=== PATIENT | male | born 1995 | race Caucasian/White ===

== ENCOUNTER 2023-11-29 14:43 | Observation (INO) ==
[2023-11-29 15:37] LABS: Hematocrit (blood only) 46.4 % (42.0-52.0); Hemoglobin 15.9 g/dl (14.0-18.0); Mean Corpuscular Hemoglobin 29.3 pg (25.0-34.0); Mean Corpuscular Hgb Conc 34.3 g/dL (32.0-36.0); Mean Corpuscular Volume 85.6 fL (80.0-100.0); Mean Platelet Volume 10.1 fL (9.4-12.4); Platelet Count 414 K/uL (130-400); RDW Coefficient of Variation 12.6 % (11.5-14.5); RDW Standard Deviation 39.3 fL (36.4-46.3); Red Blood Count 5.42 M/uL (4.70-6.10); White Blood Count 16.64 K/ul (4.8-10.8)
[2023-11-29 15:55] LABS: Albumin Globulin Ratio 1.5 (0.9-2); BUN Creatinine Ratio 12.9 (10-20); Bilirubin,Total 0.4 mg/dl (0.2-1.0); Calcium 10.1 mg/dl (8.6-10.3); Creatinine Clr Calc Pharmacy 133.8 ml/min; Est GFR (African American) 128.1 ml/min; Est GFR (Non-African American) 110.5 ml/min; Globulin 3.4 gm/dl (2.5-4.0); Potassium 4.2 mmol/L (3.5-5.1); Total Protein 8.4 gm/dl (6.0-8.3)
--- NOTE | 2023-11-29 16:09 | Emergency Department Note ---
History of Present Illness General Chief complaint: Abdominal Pain Stated complaint: ABD PAIN, VOMITING Time Seen by Provider: 11/29/23 15:50 Source: patient, family (Significant other who is at the bedside), RN notes reviewed and old records reviewed (Attempted but no old records are available in the EMR) Mode of arrival: ambulatory Limitations: no limitations History of Present Illness Maximum Pain Intensity: 8 This patient is a 28-year-old male who comes in after having epigastric pain since 4:00 in the morning. She thought it was GERD initially but is gotten worse it does radiate to his back at times he had nausea and vomiting x 4 no blood or coffee-ground emesis worse if he eats . no injury. no chest pain or shortness of breath. no fever or chills. no urinary symptoms. slight sore throat from vomiting. He does use marijuana occasionally last 1 or 2 days ago. He says he does not use it heavily. Past Med/Surg History Social History Smoking Status: Former smoker Feels Safe at Home: Yes Review of Systems A total of 10 systems reviewed and were otherwise negative Physical Exam Vital Signs Vital Signs - 24 hr 11/29/23 14:46 11/29/23 16:23 11/29/23 16:42 Temperature 36.8 C Temperature Source Temporal Artery Scan Pulse Rate 74 Pulse Rate [Finger] 69 Pulse Rhythm [Finger] Regular Respiratory Rate 18 18 Respiratory Effort / Characteristics Non-Labored Spontaneous Non-Labored Spontaneous Respiratory Depth Normal Normal Respiratory Pattern Regular Regular Blood Pressure 173/108 H Blood Pressure [Left Arm] 154/97 H Blood Pressure Mean 129 Blood Pressure Mean [Left Arm] 116 Blood Pressure Position Sitting Blood Pressure Position [Left Arm] Sitting Pulse Oximetry 98 97 98 Oxygen Delivery Method Room Air Room Air Room Air Sepsis Recent Fever Within 48 Hours No Sepsis New/Unexplained Change in Mental Status No Sepsis Action Taken by Nursing No Action Required 11/29/23 18:17 Temperature Temperature Source Pulse Rate Pulse Rate [Finger] 77 Pulse Rhythm [Finger] Respiratory Rate 18 Respiratory Effort / Characteristics Respiratory Depth Respiratory Pattern Blood Pressure Blood Pressure [Left Arm] 130/94 Blood Pressure Mean Blood Pressure Mean [Left Arm] 106 Blood Pressure Position Blood Pressure Position [Left Arm] Pulse Oximetry 99 Oxygen Delivery Method Room Air Sepsis Recent Fever Within 48 Hours Sepsis New/Unexplained Change in Mental Status Sepsis Action Taken by Nursing General: Well developed well nourished young male who appears in no acute distress, breathing comfortably on room air. Normal speech HEENT: Normal cephalic atraumatic. Pupils are equal round and reactive to light. Extraocular movements are intact. Oropharynx is pink with moist mucous membranes. No swelling of the mouth lips or tongue. Neck: Supple with a midline trachea. No meningeal signs or stiffness, no JVD or bruits. No Stridor. Chest: Clear to auscultation bilaterally. No wheezes or rhonchi. No increased work of breathing. Heart: Regular rate and rhythm without murmurs or gallops. Abdomen: Soft, minimally tender in the epigastric area nondistended without rebound guarding or rigidity. Extremities: No cyanosis clubbing or edema. No calf tenderness or assymetry Spine/Back. Non tender to palpation. No CVA tenderness Skin: Good turgor without rashes. Neurologic exam: Cranial nerves two through 12 are intact. Motor and sensation are intact and symmetrical throughout. Course Administered Medications Sodium Chloride (Nss) 1,000 mls @ 999 mls/hr IV .Q1H1M ONE Stop: 11/29/23 18:53 Last Admin: 11/29/23 17:56 Dose: 999 mls/hr Documented By: SANTOSH Discontinued Medications Sodium Chloride (Nss) 1,000 mls @ 999 mls/hr IV .Q1H1M ONE Stop: 11/29/23 17:00 Last Infusion: 11/29/23 17:25 Dose: Infused Documented By: Admin: 11/29/23 16:22 Dose: 999 mls/hr Documented By: ROMERO Ioversol (Optiray 320 100ml) 93 ml IV ONCE ONE Stop: 11/29/23 16:15 Last Admin: 11/29/23 16:14 Dose: 93 ml Documented By: GARCÍA Ondansetron HCl (Ondansetron Inj 2 Mg/Ml 2 Ml Vial) 4 mg IV NOW STA Stop: 11/29/23 16:01 Last Admin: 11/29/23 16:22 Dose: 4 mg Documented By: ROMERO Medical Decision Making Differential Diagnosis Gastritis, gallbladder disease, pancreatitis, appendicitis, electrolyte or metabolic abnormality, colitis, toxicologic Laboratory Data 11/29/23 15:24 11/29/23 15:24 Lab Results 11/29/23 11/29/23 Range/Units 15:24 16:23 WBC 16.64 H (4.8-10.8) K/ul RBC 5.42 (4.70-6.10) M/uL Hgb 15.9 (14.0-18.0) g/dl Hct 46.4 (42.0-52.0) % MCV 85.6 (80.0-100.0) fL MCH 29.3 (25.0-34.0) pg MCHC 34.3 (32.0-36.0) g/dL RDW Std Deviation 39.3 (36.4-46.3) fL RDW Coeff of Nimesh 12.6 (11.5-14.5) % Plt Count 414 H (130-400) K/uL MPV 10.1 (9.4-12.4) fL Immature Gran % (Auto) 0.4 % Neut % (Auto) 92.5 % Lymph % (Auto) 4.0 % [place] % (Auto) 2.8 % Eos % (Auto) 0.0 % Baso % (Auto) 0.3 % Neut # (Auto) 15.41 H (1.40-6.50) K/uL Lymph # (Auto) 0.66 L (1.20-3.40) K/uL [place] # (Auto) 0.46 (0.11-0.59) K/uL Eos # (Auto) 0.00 (0.00-0.50) K/uL Baso # (Auto) 0.05 (0.00-0.20) K/uL Immature Gran # (Auto) 0.06 (0.01-0.20) K/uL Sodium 136 (136-145) mmol/L Potassium 4.2 (3.5-5.1) mmol/L Chloride 101 (98-107) mmol/L Carbon Dioxide 26 (21-32) mmol/L Anion Gap 9 (3-11) BUN 12 (6-23) mg/dl Creatinine 0.93 (0.6-1.4) mg/dl Est Cr Clr Drug Dosing 133.8 ml/min Est GFR ( Amer) 128.1 ml/min Est GFR (Non-Af Amer) 110.5 ml/min BUN/Creatinine Ratio 12.9 (10-20) Glucose 134 H (70-99(Fasting)) mg/dl Calcium 10.1 (8.6-10.3) mg/dl Total Bilirubin 0.4 (0.2-1.0) mg/dl AST 23 (13-39) U/L ALT 30 (7-52) U/L Alkaline Phosphatase 51 (34-104) U/L Total Protein 8.4 H (6.0-8.3) gm/dl Albumin 5.0 (3.4-5.0) gm/dl Globulin 3.4 (2.5-4.0) gm/dl Albumin/Globulin Ratio 1.5 (0.9-2) Lipase 9 L (11-82) U/L Urine Color Yellow Urine Appearance Clear (Clear) Urine pH 7.0 (4.5-7.5) Ur Specific [place] > 1.045 H (1.000-1.030) Urine Protein 1+ H (Negative) Urine Glucose (UA) Negative (Negative) Urine Ketones 2+ H (Negative) Urine Blood Negative (Negative) Urine Nitrite Negative (Negative) Urine Bilirubin Negative (Negative) Urine Urobilinogen Negative (Negative) Ur Leukocyte Esterase Negative (Negative) Urine WBC (Auto) 0-5 (0-5) /hpf Urine RBC (Auto) 0-2 (0-2) /hpf U Hyaline Cast (Auto) 0-2 (0-2) /lpf U Epithel Cells (Auto) 0-2 (0-2) /hpf Urine Bacteria (Auto) None Seen (None Seen) Imaging Data Attestation: I personally reviewed and interpreted this imaging study as follows: My Impression: CAT scan of the abdomen and pelvis-gallbladder appears to be thickened and enlarged with a large stone seen in Radiologist's Impression: Abdomen/Pelvis CT 11/29/23 16:[address] WITH IV CONTRAST CT DOSE: 1384.01 mGy.cm HISTORY: Acute epigastric abdominal pain epigastric abd pain TECHNIQUE: Multiaxial CT images of the abdomen and pelvis were performed following the IV administration of 93 cc of Optiray, A dose lowering technique was utilized adhering to the principles of ALARA. COMPARISON STUDY: None. FINDINGS: Clear lung bases. No free air. Unremarkable spleen, pancreas and adrenal glands. 2.4 cm stone within the gallbladder neck. Mild gallbladder wall thickening with trace pericholecystic stranding. Hepatic steatosis. Patency of the hepatic and portal veins. Normal appearance of the kidneys. Partially decompressed urinary bladder. Aorta and IVC are unremarkable. No lymphadenopathy. No bowel junction, bowel wall thickening or mesenteric inflammatory stranding. Hyperdense material noted within the distal appendix may represent retained enteric contrast versus appendicolith. No CT evidence of acute appendicitis. Mild intervertebral disc space narrowing with circumferential disc osteophyte complex at L5-S1. No acute fracture. IMPRESSION: 1. Cholelithiasis with findings suggestive of acute cholecystitis. 2. Noninflamed appendix. ACT 112: Negative or not required by law. The above report was generated using voice recognition software. It may contain grammatical, syntax or spelling errors. Electronically signed by: Feliberto Valdes M.D. 11/29/2023 4:40 PM MDM Narrative This patient comes in as described above. He was seen in triage to help expedite his care. He has epigastric abdominal pain. IV access was tablet his blood count shows an elevated white count of 16 he has no peritonitis he has no significant tenderness in the right upper quadrant. He has normal liver functions and lipase. He has no significant electrolyte or metabolic abnormalities. IV access was established and he was hydrated with a 1 L IV normal saline bolus. He has remained stable was kept n.p.o. he was given a second 1 L normal saline bolus IV. His CAT scan shows a normal appendix however he has a large gallstone and findings consistent with acute cholecystitis. I did discuss the case and consult Dr. Nunez to see the patient in the emergency department for further treatment evaluation of his acute cholecystitis. Dr. Nunez plans on admitting the patient and doing the gallbladder tomorrow after discussing the case with him I did order Zosyn 4.5 g IV for antibiotic coverage. The patient reports to me no allergies. He was also having a little more pain so I did order morphine 2 mg IV and Zofran 4 mg IV. The patient will be admitted/observed Impression & Plan Acute cholecystitis, Abdominal pain, Nausea, Vomiting, Acute dehydration Discharge Plan Visit Data Chief Complaint: Abdominal Pain Stated Complaint: ABD PAIN, VOMITING ED Provider: Sean Sena Discharge Problem: Acute cholecystitis, Abdominal pain, Nausea, Vomiting, Acute dehydration Forms Stand Alone Forms: [facility] Referrals Referrals: PCP,NO [Primary Care Provider] - Discharge Problem: Abdominal pain Qualifiers: Abdominal location: epigastric Qualified Code(s): R10.13 - Epigastric pain Vomiting Qualifiers: Vomiting type: unspecified Nausea presence: with nausea Qualified Code(s): R 11.2 - Nausea with vomiting, unspecified
[2023-11-29] MEDS: OPTIRAY 320 100ml IV ONE (16:14)
[2023-11-29 16:18] LABS: Basophils # (auto) 0.05 K/uL (0.00-0.20); Basophils % (auto) 0.3 %; Immature Granulocytes # (auto) 0.06 K/uL (0.01-0.20); Immature Granulocytes % (auto) 0.4 %; Lymphocytes # (auto) 0.66 K/uL (1.20-3.40); Monocytes # (auto) 0.46 K/uL (0.11-0.59); Monocytes % (auto) 2.8 %; Neutrophils # (auto) 15.41 K/uL (1.40-6.50); Neutrophils % (auto) 92.5 %
[2023-11-29] MEDS: ONDANSETRON INJ 2 MG/ML 2 ML VIAL IV STA ×2 (16:22→18:37)
[2023-11-29] MEDS: SODIUM CHLORIDE 0.9% 1,000 ML IV ONE ×2 (16:22→17:56)
--- NOTE | 2023-11-29 16:41 | CT Scan Report ---
ABDOMEN AND PELVIS CT WITH IV CONTRAST CT DOSE: 1384.01 mGy.cm HISTORY: Acute epigastric abdominal pain epigastric abd pain TECHNIQUE: Multiaxial CT images of the abdomen and pelvis were performed following the IV administrat ion of 93 cc of Optiray, A dose lowering technique was utilized adhering to the principles of ALARA. COMPARISON STUDY: None. FINDINGS: Clear lung bases. No free air. Unremarkable spleen, pancreas and adrenal glands. 2.4 cm sto ne within the gallbladder neck. Mild gallbladder wall thickening with trace pericholecystic stranding . Hepatic steatosis. Patency of the hepatic and portal veins. Normal appearance of the kidneys. Parti ally decompressed urinary bladder. Aorta and IVC are unremarkable. No lymphadenopathy. No bowel junction, bowel wall thickening or mesenteric inflammatory stranding. Hyperdense material no jamari within the distal appendix may represent retained enteric contrast versus appendicolith. No CT ev idence of acute appendicitis. Mild intervertebral disc space narrowing with circumferential disc oste ophyte complex at L5-S1. No acute fracture. IMPRESSION: 1. Cholelithiasis with findings suggestive of acute cholecystitis. 2. Noninflamed appendix. ACT 112: Negative or not required by law. The above report was generated using voice recognition software. It may contain grammatical, syntax o r spelling errors. Electronically signed by: Feliberto Valdes M.D. 11/29/2023 4:40 PM
[2023-11-29 16:43] LABS: Appearance Urine Clear (Clear); Bacteria Urine Automated None Seen (None Seen); Bilirubin Urine Negative (Negative); Blood Urine Negative (Negative); Cast Urine Automated 0-2 /lpf (0-2); Color Urine Yellow; Epithelial Cell Urine Auto 0-2 /hpf (0-2); Glucose Urine UA Negative (Negative); Ketones Urine 2+ (Negative); Leukocyte Esterase Urine Negative (Negative); Nitrite Urine Negative (Negative); Protein Urine 1+ (Negative); RBC Urine Automated 0-2 /hpf (0-2); Specific Gravity Urine > 1.045 (1.000-1.030); Urobilinogen Urine Negative (Negative); WBC Urine Automated 0-5 /hpf (0-5)
[2023-11-29] MEDS: MoRPHine SULFATE 2 MG/ML CARP IV STA (18:37)
[2023-11-29] MEDS: PIPERACILLIN/TAZOBACTAM 4.5 GM/100 ML BAG IV ONE (18:37)
--- NOTE | 2023-11-29 18:39 | History & Physical Report ---
Date of Service November 29, 2023 Assessment & Plan (1) Acute cholecystitis: Plan 28-year-old gentleman with acute cholecystitis. Had a long discussion with him concerning the findings on CT. We discussed the risks and benefits of a laparoscopic cholecystectomy. We will admit him to the hospital and placed him on IV antibiotics and IV fluids. He will be n.p.o. past midnight. We will take him to the operating room in the morning for laparoscopic cholecystectomy. All his questions were answered, he is agreeable with the plan. History of Present Illness Primary Care Provider: NO PCP 28-year-old gentleman presents with right upper quadrant and epigastric abdominal pain beginning at 4 AM this morning. It woke him up from sleep. This been accompanied by nausea and vomiting. He gives a history of similar episodes of less intensity lasting a few hours over the past few years. He denies fevers and chills with this episode. He states the pain is a dull ache across his right upper quadrant and epigastrium. He had a bowel movement earlier today. He is able to keep down clears but no solid foods. White blood cell count is 16. CT demonstrates acute cholecystitis with a large gallstone. Past Med/Surg History Social History Smoking Status: Former smoker Feels Safe at Home: Yes Review of Systems Review of Systems: All systems reviewed & are unremarkable except as noted in HPI & below Physical Exam Constitutional: WD/WN, vitals as above Eyes: PERRL, conjunctivae normal, anicteric sclerae Neck: trachea midline, no thyromegaly Respiratory: normal respiratory effort; no respiratory distress and no labored breathing Cardiovascular: Rate/Rhythm: regular rate and regular rhythm Gastrointestinal (Abdomen): Inspection/Auscultation: abdomen normal to inspection; abdomen not distended Percussion/Palpation: + abdomen tender ( RUQ and epigastrium) and abdomen soft; no guarding and abdomen not rigid Skin: no rashes, warm and dry Psychiatric: A+Ox3, euthymic affect Results & Data Results & Data Vital Signs (Past 12 Hours) Vital Signs Temp Pulse Pulse Resp BP BP Pulse Ox 11/29/23 18:17 77 18 130/94 99 11/29/23 16:42 98 11/29/23 16:23 69 18 154/97 H 97 11/29/23 14:46 36.8 C 74 18 173/108 H 98 O2 Del Method 11/29/23 18:17 Room Air 11/29/23 16:42 Room Air 11/29/23 16:23 Room Air 11/29/23 14:46 Room Air Laboratory Results 11/29/23 11/29/23 Range/Units 16:23 15:24 WBC 16.64 H (4.8-10.8) K/ul RBC 5.42 (4.70-6.10) M/uL Hgb 15.9 (14.0-18.0) g/dl Hct 46.4 (42.0-52.0) % MCV 85.6 (80.0-100.0) fL MCH 29.3 (25.0-34.0) pg MCHC 34.3 (32.0-36.0) g/dL RDW Std Deviation 39.3 (36.4-46.3) fL RDW Coeff of Nimesh 12.6 (11.5-14.5) % Plt Count 414 H (130-400) K/uL MPV 10.1 (9.4-12.4) fL Immature Gran % (Auto) 0.4 % Neut % (Auto) 92.5 % Lymph % (Auto) 4.0 % [place] % (Auto) 2.8 % Eos % (Auto) 0.0 % Baso % (Auto) 0.3 % Neut # (Auto) 15.41 H (1.40-6.50) K/uL Lymph # (Auto) 0.66 L (1.20-3.40) K/uL [place] # (Auto) 0.46 (0.11-0.59) K/uL Eos # (Auto) 0.00 (0.00-0.50) K/uL Baso # (Auto) 0.05 (0.00-0.20) K/uL Immature Gran # (Auto) 0.06 (0.01-0.20) K/uL Sodium 136 (136-145) mmol/L Potassium 4.2 (3.5-5.1) mmol/L Chloride 101 (98-107) mmol/L Carbon Dioxide 26 (21-32) mmol/L Anion Gap 9 (3-11) BUN 12 (6-23) mg/dl Creatinine 0.93 (0.6-1.4) mg/dl Est Cr Clr Drug Dosing 133.8 ml/min Est GFR ( Amer) 128.1 ml/min Est GFR (Non-Af Amer) 110.5 ml/min BUN/Creatinine Ratio 12.9 (10-20) Glucose 134 H (70-99(Fasting)) mg/dl Calcium 10.1 (8.6-10.3) mg/dl Total Bilirubin 0.4 (0.2-1.0) mg/dl AST 23 (13-39) U/L ALT 30 (7-52) U/L Alkaline Phosphatase 51 (34-104) U/L Total Protein 8.4 H (6.0-8.3) gm/dl Albumin 5.0 (3.4-5.0) gm/dl Globulin 3.4 (2.5-4.0) gm/dl Albumin/Globulin Ratio 1.5 (0.9-2) Lipase 9 L (11-82) U/L Urine Color Yellow Urine Appearance Clear (Clear) Urine pH 7.0 (4.5-7.5) Ur Specific [place] > 1.045 H (1.000-1.030) Urine Protein 1+ H (Negative) Urine Glucose (UA) Negative (Negative) Urine Ketones 2+ H (Negative) Urine Blood Negative (Negative) Urine Nitrite Negative (Negative) Urine Bilirubin Negative (Negative) Urine Urobilinogen Negative (Negative) Ur Leukocyte Esterase Negative (Negative) Urine WBC (Auto) 0-5 (0-5) /hpf Urine RBC (Auto) 0-2 (0-2) /hpf U Hyaline Cast (Auto) 0-2 (0-2) /lpf U Epithel Cells (Auto) 0-2 (0-2) /hpf Urine Bacteria (Auto) None Seen (None Seen) Diagnostic Findings ABDOMEN AND PELVIS CT WITH IV CONTRAST CT DOSE: 1384.01 mGy.cm HISTORY: Acute epigastric abdominal pain epigastric abd pain TECHNIQUE: Multiaxial CT images of the abdomen and pelvis were performed following the IV administration of 93 cc of Optiray, A dose lowering technique was utilized adhering to the principles of ALARA. COMPARISON STUDY: None. FINDINGS: Clear lung bases. No free air. Unremarkable spleen, pancreas and adrenal glands. 2.4 cm stone within the gallbladder neck. Mild gallbladder wall thickening with trace pericholecystic stranding. Hepatic steatosis. Patency of the hepatic and portal veins. Normal appearance of the kidneys. Partially decompressed urinary bladder. Aorta and IVC are unremarkable. No lymphadenopathy. No bowel junction, bowel wall thickening or mesenteric inflammatory stranding. Hyperdense material noted within the distal appendix may represent retained enteric contrast versus appendicolith. No CT evidence of acute appendicitis. Mild intervertebral disc space narrowing with circumferential disc osteophyte complex at L5-S1. No acute fracture. IMPRESSION: 1. Cholelithiasis with findings suggestive of acute cholecystitis. 2. Noninflamed appendix. ACT 112: Negative or not required by law.
[2023-11-29] MEDS ORDERED: PROMETHAZINE HCL 12.5 MG in SODIUM CHLORIDE 0.9% 50 ML IV PRN (21:01)
[2023-11-29] MEDS ORDERED: diphenhydrAMINE 50 MG/ML VIAL IV PRN (21:01)
[2023-11-29] MEDS ORDERED: MoRPHine SULFATE 4 MG/ML 1 ML CARP\\VIAL IV PRN (21:01)
[2023-11-29] MEDS: LACTATED RINGER'S 1,000 ML IV SCH (21:07)
[2023-11-29] MEDS: PIPERACILLIN/TAZOBACTAM 4.5 GM in DEXTROSE 5% MINI-B 100 ML IV SCH (22:03)
[2023-11-29] MEDS: MoRPHine SULFATE 2 MG/ML CARP IV PRN (22:03)
[2023-11-29] MEDS: ONDANSETRON INJ 2 MG/ML 2 ML VIAL IV PRN (22:54)
--- NOTE | 2023-11-30 07:25 | Anesthesiology Consultation ---
Date of Service November 30, 2023 Assessment & Plan (1) Encounter for pre-operative examination: Chart Review Chart Review: Acceptable Risk for Surgery History Surgery Operation Date: 11/30/23 09:30 Proposed Procedures p Laparoscopic Cholecystectomy - Keyshawn Nunez MD Height/Weight Height: 5 ft 8 in Weight: 100.7 kg Medications Active Medications Generic Name Dose Route Start Last Admin Trade Name Freq PRN Reason Stop Dose Admin Lactated Ringer's 1,000 mls @ 75 mls/hr 11/29/23 21:01 11/30/23 09:29 Lr IV 12/29/23 21:00 0 mls/hr .[id number] LUIS M Infusion Piperacillin Sod/Tazobactam 100 mls @ 25 mls/hr 11/29/23 22:30 11/30/23 06:10 Sod 4.5 gm/ Dextrose IV 12/09/23 22:29 25 mls/hr Q8H LUIS M Administration Protocol Morphine Sulfate 2 mg 11/29/23 21:01 11/29/23 22:03 Morphine Sulfate 2 Mg/Ml Carp IV 12/13/23 21:00 2 mg Q3H PRN Administration Pain (1,2,3,4,5) & Pre PT Ondansetron HCl 4 mg 11/29/23 21:01 11/29/23 22:54 Ondansetron Inj 2 Mg/Ml 2 Ml Vial IV 12/29/23 21:00 4 mg Q4H PRN Administration Nausea And Vomiting Past Medical History Medical History (Updated 11/30/23 @ 10:01 by Oz Dodson MD) Acute cholecystitis Past Surgical History Surgical History (Updated 11/30/23 @ 09:59 by Oz Dodson MD) Hx of foot surgery Social History Smoking Status: Light tobacco smoker Do You Dip or Chew Tobacco: No Hx Alcohol Use: No Hx Substance Use: Yes substance use type: marijuana Last Used Substance: Days (ago) Physical Exam Vital Signs Last Vital Signs Temp 36.9 C 11/30/23 07:53 Pulse 62 11/30/23 07:53 Resp 17 11/30/23 07:53 BP 143/80 H 11/30/23 07:53 Pulse Ox 97 11/30/23 07:53 O2 Del Method Room Air 11/30/23 07:53 Testing Laboratory Results 11/29/23 15:24 11/29/23 15:24 Urine Color Yellow 11/29/23 16:23 Urine Appearance Clear (Clear) 11/29/23 16:23 Urine pH 7.0 (4.5-7.5) 11/29/23 16:23 Ur Specific [place] > 1.045 (1.000-1.030) H 11/29/23 16:23 Urine Protein 1+ (Negative) H 11/29/23 16:23 Urine Glucose (UA) Negative (Negative) 11/29/23 16:23 Urine Ketones 2+ (Negative) H 11/29/23 16:23 Urine Nitrite Negative (Negative) 11/29/23 16:23 Ur Leukocyte Esterase Negative (Negative) 11/29/23 16:23 Urine WBC (Auto) 0-5 /hpf (0-5) 11/29/23 16:23 Urine RBC (Auto) 0-2 /hpf (0-2) 11/29/23 16:23 U Hyaline Cast (Auto) 0-2 /lpf (0-2) 11/29/23 16:23 U Epithel Cells (Auto) 0-2 /hpf (0-2) 11/29/23 16:23 Urine Bacteria (Auto) None Seen (None Seen) 11/29/23 16:23
[2023-11-30] MEDS ORDERED: LIDOCAINE 2% 2 ML VIAL/AMP(20MG/ML) INFIL ONE (08:51)
[2023-11-30] MEDS ORDERED: ROCURONIUM BROMIDE 10 MG/ML 5 ML VIAL IV ONE ×2 (08:51→10:47)
[2023-11-30] MEDS ORDERED: PROPOFOL IV EMULSION 10 MG/ML 20 ML VIAL IV ONE (08:51)
[2023-11-30] MEDS ORDERED: ONDANSETRON INJ 2 MG/ML 2 ML VIAL ONE (08:51)
[2023-11-30] MEDS ORDERED: MIDAZOLAM HCL 1 MG/ML 2ML VIAL ONE (08:51)
[2023-11-30] MEDS ORDERED: fentaNYL citrate PF 100 MCG/2 ML VIAL ONE ×3 (08:51→11:40)
--- NOTE | 2023-11-30 09:54 | History & Physical Bridge Note ---
Date of Service November 30, 2023 History & Physical Bridge Note I have examined the patient, reviewed the History & Physical and in the interval since the performance of the History & Physical I have noted the following changes of clinical significance: no changes noted
--- NOTE | 2023-11-30 09:55 | Surgery Progress Note ---
Date of Service November 30, 2023 Assessment & Plan (1) Acute cholecystitis: Plan 28-year-old gentleman with acute cholecystitis. Had a long discussion with him concerning the findings on CT. We discussed the risks and benefits of a laparoscopic cholecystectomy. he is agreeable to proceed, and consent has been obtained. Will take him to the operating room at the earliest convenience. Admission and Anticipated Discharge Date Admission Date: November 29, 2023 Subjective Feeling better this morning. Denies nausea or vomiting. No fevers overnight. Physical Exam Physical Exam: NAD, A&O x 3 AFVSS Abdomen: Soft, NTND Results & Data Vital Signs (Past 12 Hours) Vital Signs Temp Pulse Resp BP Pulse Ox O2 Del Method 11/30/23 07:53 36.9 C 62 17 143/80 H 97 Room Air
[2023-11-30] MEDS ORDERED: fentaNYL citrate PF 100 MCG/2 ML VIAL IV PRN (10:02)
[2023-11-30] MEDS ORDERED: KETOROLAC 30 MG/ML VIAL IV PRN (10:02)
[2023-11-30] MEDS ORDERED: ATROPINE SULFATE 0.1 MG/ML 10ML SYR IV PRN (10:02)
[2023-11-30] MEDS ORDERED: DROPERIDOL 5 MG/2 ML VIAL IV PRN (10:02)
[2023-11-30] MEDS: ceFAZolin 2000MG 2,000 MG/15 ML SYR IV ONE (10:32)
[2023-11-30] MEDS ORDERED: LABETALOL HCL IV 5 MG/ML 20ML IV ONE (10:51)
[2023-11-30] MEDS ORDERED: SUGAMMADEX SODIUM 200 MG/2 ML VIAL IV ONE (11:26)
[2023-11-30] MEDS ORDERED: ACETAMINOPHEN 1000 MG/100 ML IV IV ONE (11:34)
[2023-11-30] MEDS: BUPIVACAINE/EPINEPHRINE 0.25% 1:200,000 30 ML VIAL ONE (11:36)
--- NOTE | 2023-11-30 11:48 | Post Operative Brief Note ---
Immediate Post Op Note v1 Date of Surgery November 30, 2023 Pre & Post Diagnosis Operation Date: 11/30/23 09:30 Pre-Op Diagnosis: Acute cholecystitis Post-Op Diagnosis: Acute cholecystitis I identified the patient and participated in the time-out.: Yes Procedure Operation Date: 11/30/23 09:30 Actual Procedures p Laparoscopic Cholecystectomy(Not Applicable) - Keyshawn Nunez MD Surgeon Keyshawn Nunez MD Manager Of Training None Estimated Blood Loss 10 Findings Consistent with Post-Op Diagnosis
--- NOTE | 2023-11-30 11:52 | Operative Report ---
Post Operative Report Pre & Post Diagnosis Operation Date: 11/30/23 09:30 Pre-Op Diagnosis: Acute cholecystitis Post-Op Diagnosis: Acute cholecystitis I identified the patient and participated in the time-out.: Yes Procedure Operation Date: 11/30/23 09:30 Actual Procedures p Laparoscopic Cholecystectomy(Not Applicable) - Keyshawn Nunez MD Surgeon Keyshawn Nunez MD Appraiser Auditor None Estimated Blood Loss 10 Findings Consistent with Post-Op Diagnosis large stone in gallbladder neck causing severe acute inflammation; chronic inflammation, hydrops of the gallbladder. Due to the severe inflammation, the surgery took doubled the normal amount of time, warranting a 22 modifier in this situation. Specimens gallbladder Drains none Anesthesia Type General Complications none Description of Procedure The patient was taken to the operating room, and placed supine on the operating table. A timeout was performed, perioperative antibiotics were administered, SCD boots were placed. After adequate anesthesia and analgesia was obtained, the abdomen was prepped and draped in the normal sterile fashion. Local anesthetic was injected into and around the proposed incision sites. An incision was made with a 15 blade scalpel in the supraumbilical region and carried down to the level of the fascia. The fascia was grasped with a trach hook, and a varies needle was used to enter the abdominal cavity. The abdomen was insufflated to a pressure of 15 mmHg, and a 11 mm trocar was placed in this location. A 10 mm, 30 degree laparoscope was placed into the abdominal cavity, and the abdomen was surveyed. There was a severe inflammatory reaction in the upper quadrant, omentum was adhesed to the liver and gallbladder. The gallbladder appeared quite distended and taut. Two 5 mm trochars were placed along the right costal margin, and one 5 mm trocar was placed in the subxiphoid region under direct visualization. Adhesions of the omentum to the gallbladder and liver edge were taken down with the hook cautery and blunt dissection. Gallbladder was drained of fluid with an 18-gauge aspiration needle. It was clear fluid indicating hydrops of the gallbladder. The gallbladder was grasped and retracted cephalad and laterally, exposing the triangle of Calot. There is a very large stone within the neck of the gallbladder causing the gallbladder to push down on the common bile duct. Careful use of the cautery, blunt dissection, dissection with the suction commercial loan reviewer was used to dissect and identify the triangle of Calot. Dissection began in the triangle with a combination of blunt dissection with the [place] dissector, and judicious use of the hook cautery. The cystic duct and cystic artery were dissected free circumferentially, and a critical view of safety was obtained. The cystic duct and cystic artery were clipped and transected, and the gallbladder was removed from the gallbladder fossa with the hook cautery. The camera was switched to a 5 mm, the gallbladder was placed in an Endo Catch bag, and removed via the supraumbilical port site. The camera was switched back to the 10 mm camera, and the abdomen was surveyed again. Hemostasis was checked and attended, and was excellent. The abdomen was copiously irrigated and suctioned free. Again hemostasis was checked and was excellent. All trochars were removed under direct visualization. The abdomen was desufflated. The fascia in the 11 mm port site was closed with a 0 Vicryl suture. The skin was closed with a running 4-0 Monocryl subcuticular stitch. Dermabond was applied. The patient tolerated the procedure without complication, and was transferred in stable condition to the PACU. All instrument, needle, and sponge counts were correct at the end of the case. I attest to the content of the Intraoperative Record and any orders documented therein. Any exceptions are noted below.
--- NOTE | 2023-11-30 12:22 | Anesthesiology Progress Note ---
Date of Service November 30, 2023 Anesthesia Post Procedure Vital Signs Vital Signs: Temp Pulse Pulse Pulse Resp BP BP 11/30/23 12:20 36.6 C 71 12 126/66 11/30/23 12:10 85 16 117/60 11/30/23 12:00 74 14 117/56 L 11/30/23 11:50 36 C L 71 12 107/56 L 11/30/23 07:53 36.9 C 62 17 143/80 H 11/29/23 21:20 36.8 C 77 18 152/91 H 11/29/23 19:36 59 L 16 149/91 H 11/29/23 18:17 77 18 130/94 11/29/23 16:42 11/29/23 16:23 69 18 154/97 H 11/29/23 14:46 36.8 C 74 18 173/108 H Pulse Ox O2 Del Method O2 Flow Rate 11/30/23 12:20 94 Room Air 11/30/23 12:10 97 Oxymask 6 11/30/23 12:00 97 Oxymask 6 11/30/23 11:50 96 Oxymask 6 11/30/23 07:53 97 Room Air 11/29/23 21:20 98 Room Air 11/29/23 19:36 97 Room Air 11/29/23 18:17 99 Room Air 11/29/23 16:42 98 Room Air 11/29/23 16:23 97 Room Air 11/29/23 14:46 98 Room Air Pain Intensity Medial Abdomen: Pain Intensity: 4 Transfer of Care Handoff Completed per policy Notes Mental Status: alert / awake / arousable Patient Amnestic to Procedure: Yes Nausea / Vomiting: adequately controlled Pain: adequately controlled Airway Patency, RR, SpO2: stable & adequate BP & HR: stable & adequate Hydration State: stable & adequate Anesthetic Complications: no major complications apparent
[2023-11-30] MEDS ORDERED: ACETAMINOPHEN 1,000 MG/100 ML VIAL IV PRN (12:44)
[2023-11-30] MEDS ORDERED: oxyCODONE/ACETAMINOPHEN 5mg/325mg TAB PO PRN ×2 (12:44)
--- NOTE | 2023-11-30 16:01 | Surgery Progress Note ---
Date of Service November 30, 2023 Assessment & Plan (1) Acute cholecystitis: Plan: POD #0 status post lap sally Doing well Advance diet as tolerated Wants to go home If tolerating food, may be discharged home this evening. Admission and Anticipated Discharge Date Admission Date: November 29, 2023 Subjective POD#0 s/p lap sally. doing well. No nausea or vomiting. Minimal pain. Feels much better. Wants to eat. Physical Exam Physical Exam: AFVSS NAD, A&O x 3 Abdomen: Soft, mild TTP Incisions C/D/I with Dermabond Results & Data Vital Signs (Past 12 Hours) Vital Signs Temp Pulse Pulse Resp BP Pulse Ox O2 Del Method 11/30/23 14:49 77 16 149/78 H 94 Room Air 11/30/23 13:44 78 16 107/68 94 Room Air 11/30/23 13:07 36.7 C 66 16 115/69 94 Room Air 11/30/23 12:43 36.7 C 67 16 113/70 93 Room Air 11/30/23 12:30 77 16 120/66 94 Room Air 11/30/23 12:20 36.6 C 71 12 126/66 94 Room Air 11/30/23 12:10 85 16 117/60 97 Oxymask 11/30/23 12:00 74 14 117/56 L 97 Oxymask 11/30/23 11:50 36 C L 71 12 107/56 L 96 Oxymask 11/30/23 07:53 36.9 C 62 17 143/80 H 97 Room Air O2 Flow Rate 11/30/23 14:49 11/30/23 13:44 11/30/23 13:07 11/30/23 12:43 11/30/23 12:30 11/30/23 12:20 11/30/23 12:10 6 11/30/23 12:00 6 11/30/23 11:50 6 11/30/23 07:53
== END 2023-11-30 20:10 | disposition home or self-care (01) ==
LOC: 3E 14:43 → ED 14:43 → 3E 20:51